=== PATIENT | male | born 1965 | race Caucasian/White ===

== ENCOUNTER 2019-04-30 21:17 | Emergency (ER) | payer MEDICAID ==
[~2019-04-30] VITALS: Ht 177.8 cm; Wt 86.2 kg
[2019-04-30 23:10] VITALS: BP 146/101
[2019-04-30] MEDS ORDERED: LIDOCAINE 1% HCL (LOCAL ANESTH.) INJ 20ML MDV IJ ONE (23:15)
== END 2019-04-30 23:43 | disposition home or self-care (01) ==
LOC: ER 21:20
DX: S61.012A Laceration without foreign body of left thumb without damage to nail, initial encounter (principal); W31.89XA Contact with other specified machinery, initial encounter; Y93.89 Activity, other specified; Y92.89 Other specified places as the place of occurrence of the external cause; Y99.8 Other external cause status
CPT/HCPCS: 12001